=== PATIENT | female | born 1955 | race Caucasian/White ===

== ENCOUNTER 2018-04-15 11:06 | Emergency (ER) | payer OTHER ==
[~2018-04-15] VITALS: Ht 165.1 cm; Wt 72.7 kg
[2018-04-15 11:52] VITALS: BP 150/88; Ht 165.1 cm; Wt 72.7 kg
== END 2018-04-15 13:37 | disposition home or self-care (01) ==
LOC: ED 11:06
DX: H11.32 Conjunctival hemorrhage, left eye (principal); M19.90 Unspecified osteoarthritis, unspecified site; I10 Essential (primary) hypertension; Z88.8 Allergy status to other drugs, medicaments and biological substances